=== PATIENT | female | born 1985 | race Caucasian/White ===

== ENCOUNTER 2023-05-27 14:50 | Emergency (ER) | payer MEDICAID, SELFPAY ==
[2023-05-27 14:51] VITALS: BP 152/102; PULSE 80; RESP 16; TEMP 36.9; O2SAT 100; BMI 22.5
[2023-05-27 16:16] LABS: Absolute Lymphocyte Count 2.65 X10^3/uL (0.83-4.51); Absolute Neutrophil Count 4.3 X10^3/uL (2.0-7.7); Basophil# 0.04 X10^3/uL; Basophil% 0.5 % (0-1); Eosinophil# 0.19 X10^3/uL; Eosinophils% 2.5 % (0-5); Hematocrit 38.5 % (37-47); Hemoglobin 12.9 g/dL (12.0-15.0); Lymphocyte # 2.65 X10^3/ul (0.83-4.51); Lymphocyte % 34.5 % (19-41); Mean Corp Hgb Conc 33.5 g/dL (32-36); Mean Corpuscular Hgb 30.6 pg (27.0-32.0); Mean Corpuscular Volume 91.4 fL (81-99); Mean Platelet Vol. 9.3 fl (6.2-12.0); Monocyte# 0.54 X10^3/uL; NRBC Flagged by Analyzer 0 % (0-5); Neutrophil # 4.25 X10^3/uL (2.7-7.7); Neutrophil % 55.2 % (47-70); Platelet Count 241 K/mm3 (150-450); RBC Distribution Width SD 39.9 fl (35.1-43.9); Red Blood Count 4.21 M/mm3 (4.2-5.4); White Blood Count 7.7 K/mm3 (4.4-11.0)
[2023-05-27 16:24] LABS: Bacteria 0 SEEN /hpf (None Seen); Mucous, Urine 0 SEEN /hpf (<or=2+); Red Blood Cells-Urine 0 SEEN /hpf (0-5); Squamous Epithelial Cells - UA 0 SEEN /hpf (5-10); White Blood Cells 0 SEEN /hpf (0-5)
[2023-05-27 16:24] LABS: Internal QC Validated? YES +Cl - CLEAR BKGD; Pregnancy, Serum, hCG Quali. NEGATIVE Negative
[2023-05-27 16:28] LABS: Color, Urine Straw (Yellow); Glucose, Dipstick Normal (Normal); Ketone-Dipstick 15 mg/dl (Negative); Leukocyte Esterase-Dipstick Negative /ul (Negative); Nitrite-Dipstick Negative (Negative); Occult Blood-Urine Negative /ul (Negative); Protein-Dipstick Negative (Negative); Urine Bilirubin Dipstick Negative (Negative); Urine Clarity Clear (Clear); Urine Urobilinogen Normal (Normal); Urine pH 6.5 (5.0 - 8.0)
[2023-05-27 16:31] LABS: ALB/GLOB Ratio 1.2 RATIO (0.9-2.4); AST(SGOT) 18 U/L (15-37); Alanine Aminotransfer ALT/SGPT 20 U/L (13-56); Albumin, Serum 3.9 g/dL (3.2-5.0); Alkaline Phosphatase 56 U/L (45-117); Anion Gap 5 (5-15); BUN 15 mg/dL (7-18); BUN/Creat Ratio 19.1 RATIO (10-20); Calcium,Total 9.1 mg/dL (8.5-10.1); Chloride 108 mmol/L (98-107); Creatinine, Serum 0.78 mg/dL (0.55-1.02); EST Glomerular Filtration Rate 87 mL/min (>60); Est Glom Filt Rate - Afr Amer 105 mL/min (>60); Estimated Creatinine Clearance 84.45 ml/min; Globulin 3.3 g/dL (2.2-4.2); Glucose 89 mg/dL (74-106); Lipase 39 U/L (13-75); Potassium 3.6 mmol/L (3.5-5.1); Protein, Total 7.2 g/dL (6.4-8.2); Sodium Level 138 mmol/L (136-145)
[2023-05-27] MEDS: Ondansetron 4 MG/2 ML Vial IV (16:53)
[2023-05-27] MEDS: Mag Hydrox/Al Hydrox/Simeth 30 ML UDC PO (16:53)
--- NOTE | 2023-05-27 16:55 | RAD_ITS ---
STUDY: X-RAY CHEST REASON FOR EXAM: Female, 37 years old. chest pain TECHNIQUE: Single frontal view of the chest. COMPARISON: None. FINDINGS: The lungs are clear and expanded. There is no demonstrated pleural abnormality. Normal size heart. Normal mediastinum and kiersten. Normal visualized pulmonary arteries. Normal visualized aortic arch and descending thoracic aorta. Normal visualized thoracic spine. Normal visualized ribs, clavicles, and shoulders. There is no demonstrated abnormality of the visualized soft tissue structures of the upper abdomen. RAD/Chest 1 View (Portable) IMPRESSION: Normal x-ray examination of the chest. Electronically Signed: Ronni Puga MD at 18:24 EDT ,
--- NOTE | 2023-05-27 17:02 | ED.VIS.GI ---
HPI HPI - GI History of Present Illness Chief Complaint: Abd Pain Narrative Narrative: Patient presenting with nausea, epigastric pain, retrosternal pain. She states it is sharp and achy. Patient states it started 2 days ago while she was at [facility]. Patient states that she ate a spicy sandwich on the way to [facility] and was able to hike without much difficulty. For dinner she and her went to the [facility] and had spicy shrimp and something else. Patient states that that night she woke up with epigastric pain and burning. She had some nausea. She states in the morning it felt a little bit better and she ate some eggs and hashbrowns. She has not eaten anything today due to the epigastric discomfort and burning. She states it feels like it is in her lower chest. Denies any history of cardiac problems. No history of DVT plus PE and no fixed factors. Patient states she did drink some coronas over the weekend but states that it was nothing out of the new and she did not drink excessively. No history of pancreatitis. No fevers or chills. No diarrhea, no constipation. No urinary or vaginal complaints. PFSH PFSH Home Medications famotidine 20 mg tablet (Pepcid AC) 20 mg PO BID PRN epigastric pain #20 tabs 05/27/23 [Rx Last Taken Unknown] famotidine 20 mg tablet (Pepcid AC) 20 mg PO DAILY 05/27/23 [History Last Taken Unknown] ondansetron 4 mg disintegrating tablet 4 mg PO Q8H PRN PRN Nausea #20 tabs 05/27/23 [Rx Last Taken Unknown] Allergy/AdvReac Type Severity Reaction Status Date / Time No Known Allergies Allergy Verified 05/27/23 14:53 Social History Smoking Status: Former smoker ROS ROS ED Constitutional Constitutional ED: Denies chills, fever(s) or sweats Eyes Eyes: Denies blurry vision or change in vision ENT ENT ED: Denies ear pain or sore throat Cardiovascular Cardiovascular: Reports chest pain; Denies palpitations or racing heartbeat Respiratory/Chest Respiratory/Chest: Denies cough, dyspnea or sputum Gastrointestinal Gastrointestinal: Reports abdominal pain and nausea; Denies constipation, diarrhea or vomiting Genitourinary Genitourinary ED: Denies dysuria, hematuria or urinary frequency Musculoskeletal Musculoskeletal: Denies arthralgias, myalgias or neck pain Integumentary Denies abscess, Abrasions or rash Neurologic Neurologic: Denies headache(s), paresthesias or weakness Psychiatric Psychiatric: Denies anxiety, depression, suicidal ideation or suicidal thoughts Endocrine Endocrinology: Denies polydipsia or polyuria EXAM Physical Exam Const Vital Signs: 05/27/23 14:51 05/27/23 17:44 Temperature 98.4 F Temperature Source Temporal Pulse Rate 80 62 Respiratory Rate 16 16 Blood Pressure 152/102 H 115/77 Blood Pressure Mean 118 89 Pulse Ox 100 Oxygen Delivery Method Room Air Positive well nourished General Appearance ED: Negative for pallor HEENT Reports moist mucous membranes Eyes PERRL and EOMs intact bilaterally Resp normal respiratory effort Auscultation: Negative for rales, rhonchi or wheezes Cardio regular rate and regular rhythm GI non-tender and non-distended Neuro CN's II-XII intact bilaterally and moves all extremities Sensorium / Orientation: alert Psych mental status grossly normal Skin no wounds General Skin Exam: Negative for jaundice or pallor MDM MDM MDM Narrative Medical decision making narrative: 37-year-old female with epigastric/substernal pain. Differential includes ACS, pneumonia, GERD, gastritis, pancreatitis, dehydration, anemia, electrolyte abnormalities. Low suspicion for ACS. I think this is mostly GI related. Patient given Zofran and GI cocktail. CBC obtained to assess white blood cell count, hemoglobin, platelets. CMP to assess liver function, renal function, electrolytes. Lipase to assess for pancreatitis.hCG to assess for . Urinalysis to assess for UTI. Chest x-ray my interpretation shows no acute process. Radiologist interprets and agrees. CBC, CMP, lipase all within normal limits. hCG negative. Urinalysis negative. Patient feeling much better after GI cocktail and Zofran. Discussed foods to avoid for her. This is likely gastritis/GERD. Discharged home with prescription for Pepcid and Zofran. Impression: 1. Gastritis Lab Data Attestation: I reviewed the patient's lab results. Labs: Laboratory Results - last 24 hr 05/27/23 05/27/23 05/27/23 15:21 16:00 16:15 WBC 7.7 RBC 4.21 Hgb 12.9 Hct 38.5 MCV 91.4 MCH 30.6 MCHC 33.5 RDW Std Deviation 39.9 RDW Coeff of Rebecca 12.0 Plt Count 241 MPV 9.3 Immature Gran % (Auto) 0.300 Neut % (Auto) 55.2 Lymph % (Auto) 34.5 [place] % (Auto) 7.0 Eos % (Auto) 2.5 Baso % (Auto) 0.5 Absolute Neuts (auto) 4.3 Absolute Lymphs (auto) 2.65 Nucleated RBC % 0 Sodium 138 Potassium 3.6 Chloride 108 H Carbon Dioxide 25.0 Anion Gap 5 BUN 15 Creatinine 0.78 Estim Creat Clear Calc 84.45 Est GFR (MDRD) Af Amer 105 Est GFR (MDRD) Non-Af 87 BUN/Creatinine Ratio 19.1 Glucose 89 Calcium 9.1 Total Bilirubin 0.60 AST 18 ALT 20 Alkaline Phosphatase 56 Troponin I High Sens 3 Total Protein 7.2 Albumin 3.9 Globulin 3.3 Albumin/Globulin Ratio 1.2 Lipase 39 Serum , Qual NEGATIVE Urine Color Straw Urine Clarity Clear Urine pH 6.5 Ur Specific [place] 1.010 Urine Protein Negative Urine Glucose (UA) Normal Urine Ketones 15 H Urine Occult Blood Negative Urine Nitrite Negative Urine Bilirubin Negative Urine Urobilinogen Normal Ur Leukocyte Esterase Negative Urine RBC 0 SEEN Urine WBC 0 SEEN Ur Squamous Epith Cells 0 SEEN Urine Bacteria 0 SEEN Urine Mucus 0 SEEN Radiography Diagnostic Testing: Clinical Impression(s) from Imaging Studies Chest X-Ray 05/27/23 16:55 IMPRESSION: Normal x-ray examination of the chest. Electronically Signed: Ronni Puga MD at 18:24 EDT Reading Location ID and State: [facility] / [place] Tel , Service support , Discharge Plan Triage Chief Complaint: Abd Pain ED Provider: Keyon Guzman Dx/Rx/DC Orders Instructions: ED Gastritis (Adult) Prescriptions: New famotidine [Pepcid AC] 20 mg tablet 20 mg PO BID PRN (Reason: epigastric pain) Qty: 20 0RF ondansetron 4 mg tablet,disintegrating 4 mg PO Q8H PRN PRN (Reason: Nausea) Qty: 20 0RF No Action famotidine [Pepcid AC] 20 mg tablet 20 mg PO DAILY Primary Care Provider: Care PhysicianDeya Primary Referrals: [facility] [Outside] - 3-5 Days Care Physician,No Primary [Primary Care Provider] - Disposition Disposition: Home, Self Care
[2023-05-27 17:38] LABS: Troponin-I HS 3 pg/mL (3.0-54.0)
[2023-05-27 17:44] VITALS: BP 115/77; PULSE 62; RESP 16
[2023-05-27 18:57] VITALS: BP 125/85; PULSE 64; RESP 16; TEMP 36.7; O2SAT 100
== END 2023-05-27 19:17 | disposition home or self-care (01) ==
PROVIDERS: Emergency Provider Student in an Organized Health Care Education/Training Program; Visit Provider Student in an Organized Health Care Education/Training Program
DX: K29.70 Gastritis, unspecified, without bleeding (principal); Z87.891 Personal history of nicotine dependence
CPT/HCPCS: 71045; 80053; 81001; 83690; 84484; 84703; 85025; 96374; 99283; A4216; J2405

== ENCOUNTER 2023-07-24 12:41 | Emergency (ER) | payer MEDICAID, SELFPAY ==
[2023-07-24 12:42] VITALS: BP 137/106; PULSE 79; RESP 14; TEMP 36.6; O2SAT 100; BMI 22.1
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
[2023-07-24 13:23] VITALS: BP 133/67; PULSE 88; RESP 16; TEMP 36.7; O2SAT 98
[2023-07-24 13:26] VITALS: BP 133/69; PULSE 88; RESP 16; TEMP 36.7; O2SAT 99
== END 2023-07-24 13:26 | disposition home or self-care (01) ==
PROVIDERS: Emergency Provider Emergency Medicine; Visit Provider Emergency Medicine
DX: S39.012A Strain of muscle, fascia and tendon of lower back, initial encounter (principal); Z87.891 Personal history of nicotine dependence; M51.36 Other intervertebral disc degeneration, lumbar region; Y92.410 Unspecified street and highway as the place of occurrence of the external cause; V43.52XA Car driver injured in collision with other type car in traffic accident, initial encounter
CPT/HCPCS: 72100; 99282